=== PATIENT | female | born 1950 | race Asian ===

== ENCOUNTER 2019-01-13 11:17 | Day surgery (SDC) | payer OTHER ==
[2019-01-13] MEDS ORDERED: PROPOFOL 200 MG INJ (13:20)
[2019-01-13] MEDS ORDERED: PROPOFOL 40 ML (13:20)
[2019-01-13] MEDS ORDERED: LIDOCAINE 2% (SDV) 5 ML INJ (13:20)
== END 2019-01-13 16:49 | disposition home or self-care (01) ==
LOC: GIL 11:17
DX: Z12.11 Encounter for screening for malignant neoplasm of colon (principal); D12.2 Benign neoplasm of ascending colon; K64.8 Other hemorrhoids; I10 Essential (primary) hypertension
CPT/HCPCS: 45380; 88305